=== PATIENT | female | born 1955 | race Caucasian/White ===

== ENCOUNTER 2023-01-04 09:15 | Inpatient (IN) | payer MEDICARE, OTHER ==
[~2023-01-04] VITALS: Ht 149.9 cm; Wt 65.7 kg
[~2023-01-04 09:15] MED LIST: SODIUM CHLORIDE 0.9% 1,000 ML ONE
[2023-01-04] MEDS ORDERED: LOSA-381 PO (10:13)
[2023-01-04] MEDS ORDERED: CYCL-448 PO (10:14)
[2023-01-04] MEDS ORDERED: AMLO-257 PO (10:15)
[2023-01-04] MEDS ORDERED: SEMA7TAB2 PO (10:19)
[2023-01-04] MEDS ORDERED: MELO-381 PO (10:19)
[2023-01-04] MEDS ORDERED: GABA-1216 PO (10:20)
[2023-01-04] MEDS ORDERED: GLIM4 PO (10:21)
[2023-01-04] MEDS ORDERED: ASPI81TA39 PO (10:21)
[2023-01-04] MEDS ORDERED: FENO160T75 PO (10:22)
[2023-01-04] MEDS ORDERED: ATOR20TA86 PO (10:23)
[2023-01-04] MEDS ORDERED: SUCR1ORA15 PO (10:24)
[2023-01-04] MEDS ORDERED: DiphenhydrAMINE HCL 50 MG CAPSULE ONE (10:42)
[2023-01-04] MEDS ORDERED: DIAZEPAM 5 MG TABLET ONE (10:43)
[2023-01-04] MEDS ORDERED: DiphenhydrAMINE HCL 50 MG CAPSULE PO ONE (11:00)
[2023-01-04] MEDS ORDERED: DIAZEPAM 5 MG TABLET PO ONE (11:00)
[2023-01-04] MEDS ORDERED: ASPIRIN 81 MG CHEWABLE TABLET PO ONE (11:00)
[2023-01-04] MEDS: SODIUM CHLORIDE 0.9% 1,000 ML IV SCH ×2 (11:28→20:24)
[2023-01-04 11:36] LABS: GLUCOMETER DEV NAME(LOC) SDS.; GLUCOSE,POINT OF CARE 75 MG/DL (70-110)
[2023-01-04] MEDS ORDERED: SODIUM CHLORIDE 0.9% 1,000 ML IV ONE (12:00)
[2023-01-04] MEDS ORDERED: LIDOCAINE/PF 1% 30 ML VIAL ONE (12:32)
[2023-01-04] MEDS ORDERED: IOHEXOL 300 MG/ML 100 ML VIAL ONE (12:32)
[2023-01-04] MEDS ORDERED: SODIUM BICARBONATE 50 MEQ/50 ML VIAL ONE (12:32)
[2023-01-04] MEDS ORDERED: HEPARIN SODIUM 1000 UNITS/NS 1,000 ML ONE (12:32)
[2023-01-04] MEDS ORDERED: FentaNYL CITRATE PF 100 MCG/2 ML VIAL ONE (12:53)
[2023-01-04] MEDS ORDERED: MIDAZOLAM HCL 2 MG/2 ML VIAL ONE (12:54)
[2023-01-04 13:15] VITALS: BP 122/58
[2023-01-04] MEDS ORDERED: LIDOCAINE 1% 30 ML/SOD BICARB 8.4% 4 ML SQ ONE (13:15)
[2023-01-04] MEDS ORDERED: FentaNYL CITRATE PF 100 MCG/2 ML VIAL IVP ONE (13:15)
[2023-01-04] MEDS ORDERED: HEPARIN SODIUM 1000 UNITS/NS 1,000 ML IARTER ONE (13:15)
[2023-01-04] MEDS ORDERED: MIDAZOLAM HCL 2 MG/2 ML VIAL IVP ONE (13:15)
[2023-01-04] MEDS ORDERED: IOHEXOL 300 MG/ML 100 ML VIAL ICOR ONE (13:15)
[2023-01-04] MEDS ORDERED: HEPARIN SODIUM,PORCINE 1,000 UNITS/ML 10 ML VIAL IARTER ONE (13:45)
[2023-01-04] MEDS ORDERED: TICAGRELOR 90 MG TABLET PO ONE (14:00)
[2023-01-04] MEDS ORDERED: ONDANSETRON HCL 4 MG/2 ML VIAL IVP PRN (14:15)
[2023-01-04] MEDS ORDERED: BISACODYL 10 MG RECTAL RECTAL SUPPOSITORY PR PRN (14:15)
[2023-01-04] MEDS ORDERED: DEXTROSE 50%-WATER 25 GM/50 ML SYRINGE IVP PRN (14:15)
[2023-01-04] MEDS ORDERED: MAGNESIUM HYDROXIDE SUSPENSION 30 ML UDCUP PO PRN (14:15)
[2023-01-04] MEDS ORDERED: MORPHINE SULFATE 2 MG/ML SYRINGE IVP PRN (14:15)
[2023-01-04] MEDS ORDERED: HYDROCODONE/ACETAMINOPHEN 5-325 MG TABLET PO PRN (14:15)
[2023-01-04] MEDS ORDERED: ACETAMINOPHEN 325 MG TABLET PO PRN (14:15)
[2023-01-04] MEDS ORDERED: ZOLPIDEM TARTRATE 5 MG TABLET PO PRN (14:15)
[2023-01-04 20:03] VITALS: BP 132/61
[2023-01-04] MEDS: DOCUSATE SODIUM 100 MG CAPSULE PO SCH (21:13)
[2023-01-04] MEDS: GABAPENTIN 100 MG CAPSULE PO SCH (21:13)
[2023-01-04] MEDS: SUCRALFATE 1 GM/10 ML SUSPENSION UDCUP PO SCH (21:14)
[2023-01-04] MEDS: HEPARIN SODIUM,PORCINE 5,000 UNITS/ML VIAL SQ SCH (23:27)
[2023-01-04 23:28] VITALS: BP 121/63
[2023-01-05 04:12] VITALS: BP 127/61
[2023-01-05] MEDS: INSULIN LISPRO 100 UNITS/ML SQ PRN ×2 (06:03→12:26)
[2023-01-05 07:17] LABS: BASOPHILS % (AUTO) 0.5 % (0.0-2.0); EOSINOPHILS % (AUTO) 2.9 % (1.0-6.0); HEMATOCRIT 34.1 % (36-46); HEMOGLOBIN 11.2 g/dL (12.0-16.0); LYMPHOCYTES # (AUTO) 1.7 K/uL (1.0-4.8); MEAN CORPUSCULAR HEMOGLOBIN 27.2 pg (26.0-34.0); MEAN CORPUSCULAR HGB CONC 32.9 G/dL (31.0-37.0); MEAN CORPUSCULAR VOLUME 83 fL (80-100); MONOCYTES # (AUTO) 0.7 K/uL (0.1-1.0); MONOCYTES % (AUTO) 11.7 % (2.0-9.0); NEUTROPHILS # (AUTO) 3.7 K/uL (1.8-7.7); NEUTROPHILS % (AUTO) 57.9 % (40.0-70.0); PLATELET COUNT (AUTO) 234 K/uL (150-450); RED BLOOD CELL COUNT(AUTO) 4.12 MIL/uL (4.00-5.20); RED CELL DISTRIBUTION WIDTH 14.5 % (11.5-14.5)
[2023-01-05 07:27] VITALS: BP 120/58
[2023-01-05 07:34] LABS: ANION GAP 5 mmol/L (8-16); CALCIUM, TOTAL 8.5 mg/dL (8.8-10.5); CARBON DIOXIDE 29 mmol/L (22-29); CHLORIDE 102 mmol/L (98-107); CREATININE 0.88 mg/dL (0.60-1.30); GLOMERULAR FILTR. RATE CALC > 60 mL/min (>60); GLUCOSE,RANDOM 211 mg/dL (70-110); POTASSIUM 4.4 mmol/L (3.5-5.1); SODIUM SERUM 136 mmol/L (136-145); UREA NITROGEN, BLOOD 14 mg/dL (7-18)
[2023-01-05] MEDS ORDERED: GLIMEPIRIDE 4 MG TABLET PO SCH (08:00)
[2023-01-05] MEDS: HEPARIN SODIUM,PORCINE 5,000 UNITS/ML VIAL SQ SCH (08:40)
[2023-01-05] MEDS: DOCUSATE SODIUM 100 MG CAPSULE PO SCH (08:41)
[2023-01-05] MEDS: GABAPENTIN 100 MG CAPSULE PO SCH (08:41)
[2023-01-05] MEDS: SUCRALFATE 1 GM/10 ML SUSPENSION UDCUP PO SCH (08:45)
[2023-01-05] MEDS ORDERED: FENOFIBRATE 160 MG TABLET PO SCH (09:00)
[2023-01-05] MEDS ORDERED: CYCLOBENZAPRINE HCL 10 MG TABLET PO SCH (09:00)
[2023-01-05] MEDS ORDERED: TICAGRELOR 90 MG TABLET PO SCH (09:00)
[2023-01-05] MEDS ORDERED: AmLODIPine BESYLATE 5 MG TABLET PO SCH (09:00)
[2023-01-05] MEDS ORDERED: PANTOPRAZOLE SODIUM 40 MG DR TABLET PO SCH (09:00)
[2023-01-05] MEDS ORDERED: ASPIRIN 81 MG CHEWABLE TABLET PO SCH (09:00)
[2023-01-05] MEDS ORDERED: LOSARTAN POTASSIUM 25 MG TABLET PO SCH (09:00)
[2023-01-05 10:58] VITALS: BP 134/59
[2023-01-06 00:37] LABS: GLUCOMETER DEV NAME(LOC) 5N.1C; GLUCOSE,POINT OF CARE 309 MG/DL (70-110)
== END 2023-01-05 19:00 | disposition home or self-care (01) | DRG 247 ==
LOC: CATHLAB 09:15 → 5S 09:16
PROVIDERS: ADMIT Internal Medicine Interventional Cardiology; ATTEND Internal Medicine Interventional Cardiology
PROC: 027034Z Dilation of Coronary Artery, One Artery with Drug-eluting Intraluminal Device, Percutaneous Approach (ICD-10-PCS; principal; 2023-01-04)
PROC: 4A023N7 Measurement of Cardiac Sampling and Pressure, Left Heart, Percutaneous Approach (ICD-10-PCS; 2023-01-04)
PROC: B2111ZZ Fluoroscopy of Multiple Coronary Arteries using Low Osmolar Contrast (ICD-10-PCS; 2023-01-04)
PROC: B2151ZZ Fluoroscopy of Left Heart using Low Osmolar Contrast (ICD-10-PCS; 2023-01-04)
PROC: B41F1ZZ Fluoroscopy of Right Lower Extremity Arteries using Low Osmolar Contrast (ICD-10-PCS; 2023-01-04)
DX: I25.110 Atherosclerotic heart disease of native coronary artery with unstable angina pectoris (principal); E78.5 Hyperlipidemia, unspecified; I10 Essential (primary) hypertension; K21.9 Gastro-esophageal reflux disease without esophagitis; E11.40 Type 2 diabetes mellitus with diabetic neuropathy, unspecified; C50.919 Malignant neoplasm of unspecified site of unspecified female breast; Z85.3 Personal history of malignant neoplasm of breast
CPT/HCPCS: 80048; 82962; 85025; 92920; 92928; 93005; J1644; J2250; J3010; J3490; J7030; Q9967; 36415-L1; 36415-TC